=== PATIENT | male | born 1985 | race Caucasian/White ===

== ENCOUNTER → 2019-02-11 | Outpatient (CLI) | payer OTHER, SELFPAY ==
--- NOTE | 2019-02-11 15:26 | RAD_ITS ---
HISTORY:right wrist pain, Hx fracture when a child- growth plate right wrist pain, Hx fracture when a child- growth plate COMPARISON: None FINDINGS: # of images incl. paperwork: 3 XR Wrist Min 3 Views: Right BONE AND JOINTS: No acute fracture or subluxation. Corticated calcification distal to the ulnar styloid that may represent prior trauma or nonunion of secondary ossification center SOFT TISSUES: Unremarkable. No radiopaque foreign body. RAD/Wrist min 3 Views IMPRESSION: No acute pathology If symptoms persist repeat study in 7-10 days or sooner if clinically indicated at 1853 Reported and signed by: Ann Hoskins DO Electronically Signed: Ann Hoskins DO at 18:51 EDT Tel , Service support ,
--- NOTE | 2019-02-11 15:27 | RAD_ITS ---
HISTORY:right foot pain right foot pain COMPARISON: None FINDINGS: # of images incl. paperwork: 3 XR Foot Min 3 Views: Right BONE AND JOINTS: No acute fracture or subluxation. SOFT TISSUES: Unremarkable. No radiopaque foreign body. RAD/Foot min 3 Views IMPRESSION: No acute pathology If symptoms persist repeat study in 7-10 days or sooner if clinically indicated at 1852 Reported and signed by: Ann Hoskins DO Electronically Signed: Ann Hoskins DO at 18:51 EDT Tel , Service support ,
--- NOTE | 2019-02-11 15:27 | RAD_ITS ---
HISTORY:right ankle pain right ankle pain COMPARISON: None FINDINGS: # of images incl. paperwork: 3 XR Ankle Min 3 Views: Right BONE AND JOINTS: No acute fracture or subluxation. Small corticated fragment seen inferior and medial to the tip of the lateral malleolus may be secondary to prior trauma SOFT TISSUES: Unremarkable. No radiopaque foreign body. RAD/Ankle min 3 Views IMPRESSION: No acute pathology If symptoms persist repeat study in 7-10 days or sooner if clinically indicated at 1853 Reported and signed by: Ann Hoskins DO Electronically Signed: Ann Hoskins DO at 18:52 EDT Tel , Service support ,
--- NOTE | 2019-02-11 15:35 | RAD_ITS ---
HISTORY:right foot pain right foot pain COMPARISON: None FINDINGS: # of images incl. paperwork: 3 XR Hand Min 3 Views: Right BONE AND JOINTS: No acute fracture or subluxation. Corticated fragment distal to the ulnar styloid that may be secondary to prior trauma or nonunion of secondary aspiration Center SOFT TISSUES: Unremarkable. No radiopaque foreign body. RAD/Hand Min 3 Views IMPRESSION: No acute pathology If symptoms persist repeat study in 7-10 days or sooner if clinically indicated at 1855 Reported and signed by: Ann Hoskins DO Electronically Signed: Ann Hoskins DO at 18:54 EDT Tel , Service support ,
== END | disposition home or self-care (01) ==
PROVIDERS: Referring Provider Anesthesiology Pain Medicine; Visit Provider Anesthesiology Pain Medicine
DX: M79.641 Pain in right hand (principal); M79.671 Pain in right foot
CPT/HCPCS: 73110; 73130; 73610; 73630

== ENCOUNTER 2019-03-16 17:30 | Outpatient (RCR) | payer OTHER, SELFPAY ==
--- NOTE | 2019-02-25 17:19 | HP.PTEVAL_ITS ---
Patient's Visit Information KEN SIERRA is a 33 year old M referred to Physical Therapy by Eder Alexis MD with a diagnosis of ANKLE PAIN AND HAND PAIN. Date of Evaluation: 02/25/19 Physical Therapist: Eldon Pfeiffer PT, Cert MDT, OCS - Visit Plan Frequency: 2x /Week Duration: 4 Weeks Plan: PLAN TO SEE OT (TOMMY ) FOR HAND. PT INTERVENTIONS ANKLE STRENGTHENING,PROPRIOCEPTION ,FLEXABLITY G-S,MODALTIES NEED - Subjective Findings: This 33 y/o male presents to physical therapy with right foot pain and hand pain. Patient has had right ankle pain from injury 8 years ago sprain ankle x2 . Patient has current ankle pain global. Patient injuried right wrist 8th grade from snow board. Deies parathesia/tingling. Patient ankle can gives way easy . Patient pain affects job demands and ADL's Sleeping okay at night . Symptoms worse with working and standing at wotrk long hours at work.Patient pain affects QOL and function. VOCATION: [employer]. 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 GAIT: normal ike reciprocal. PALAPTION: remarkable. EDEMA: absent. AROM:DF 5 degrees,PF 65 degrees ,IN 40 degrees,EV 10 degrees. MMT: ankle stabilizies 4/5. PROPRIOCEPTION: intact. SPECIAL TEST: inversion stress -,anterior drawer - - Goals Goal 1:: Patient to be Independant with HEP Goal Time Frame: 2-4 Weeks Goal 2:: Decrease ankle pain by 50 % or> to improve function Goal Time Frame: 2-4 Weeks Goal 3:: Patient to increase strength right ankle by 5/5 to improve function Goal Time Frame: 2-4 Weeks Goal 4:: Patient to improve LFES score by 10 ponts to improve function Goal Time Frame: 2-4 Weeks - Rehabilitation Potential Physical Therapy Diagnosis: Pateint has chronic ankle pain from h/o multiple ankle sprains with pain impairs ,srength affects function with walking on even surfaces. Rehabilitation Potential: Good - Anticipated Interventions Patient/Client Instruction: Educate patient on: Condition, Plan of Care For the Purpose of:: To decrease pain, To increase ROM, To improve muscle performance and motor function, To improve ability to perform ADL's, To improve performance and independence with ADL's, To improve ability of physical actions for home/community/work/leisure, To improve health of tissue, To decrease soft tissue restriction, To reduce risk of recurrence, To improve ability to perform tasks related to life management Therapeutic Exercise to Include: Strength training, Endurance training, Balance training, Flexibilty training, Active ROM Comment: ANKLE/PROPRIOCEPTION For the Purpose of:: To decrease pain, To increase ROM, To improve muscle performance and motor function, To increase tolerance to activity/condition/position, To improve ability of physical actions for home/community/work/leisure, To improve health of tissue, To decrease soft tissue restriction, To increase flexibility/ROM, To improve balance, To improve ability to perform tasks related to life management TENS: Yes IF ES: Yes Cryotherapy (ice pack, ice massage): Yes Thermo therapy (hot pack): Yes Ultrasound (thermal/non thermal): Yes For the Purpose of:: To decrease pain, To increase ROM, To improve nutrient delivery to tissue, To increase oxygenation perfusion, To improve health of tissue, To decrease soft tissue restriction Thank you for the opportunity to evaluate your patient. For Medicare and Medicare HMO plans, please review the plan of care and approve it. It will need to be FAXED BACK to us at [phone] for Medicare purposes. For Medicare only, by signing this I certify the plan of care. Please let me know if there are questions or concerns regarding this plan of care. Physician Signature: Date:
--- NOTE | 2019-03-16 18:50 | HP.OTEVAL ---
Patient's Visit Information KEN SIERRA is a 33 year old M, referred to Occupational Therapy by Eder Alexis MD, with a diagnosis of right hand/wrist pain. Date of Evaluation: 03/16/19 Occupational Therapist: Beckie Tolbert, DEBBIE/Emmie, CHT - Subjective Subjective: This 33 year old male was seen for OT eval with dx of right wrist/hand pain- pt states when he was in 8th grade he had a growth plate fracture from snow boarding. 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 Pt will demo an increase in lateral and tripod pinch by 6# to increase pts independent with opening baggies, containers at PLOF by D/C. 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 Pt would benefit from skilled OT services 1-2x week for 4 weeks to decrease pain, increase strength to return pt to PLOF. Therapist ed. pt on Ice, limited use and work ergo to decrease pts pain. pt also ed. in POC. pt demo understanding and agree to POC. Rehabilitation Potential: Good - Anticipated Interventions Anticipated Interventions: A/AAROM/PROM, Strengthening, Modalities, Orthoses, Ergonomic Education - Visit Plan Frequency: 1-2x /Week Duration: 4 Weeks TEXT: Thank you for the opportunity to evaluate your patient. For Medicare and Medicare HMO plans, please review the plan of care and approve it. It will need to be FAXED BACK to us at [phone] for Medicare purposes. Please let me know if there are questions or concerns regarding this plan of care. Physician Signature: Date:
--- NOTE | 2019-04-15 13:52 | HP.PT.NRP ---
HP - Discharge Summary (1) - Patient Information KEN SIERRA was seen in my office for initial evaluation on 02/25/19. The following Plan of Care was established for this patient: Initial Frequency: 2x /Week Initial Duration: 4 Weeks - Anticipated Interventions Patient/Client Instruction: Educate patient on: Condition, Plan of Care For the Purpose of:: To decrease pain, To increase ROM, To improve muscle performance and motor function, To improve ability to perform ADL's, To improve performance and independence with ADL's, To improve ability of physical actions for home/community/work/leisure, To improve health of tissue, To decrease soft tissue restriction, To reduce risk of recurrence, To improve ability to perform tasks related to life management Therapeutic Exercise to Include: Strength training, Endurance training, Balance training, Flexibilty training, Active ROM For the Purpose of:: To decrease pain, To increase ROM, To improve muscle performance and motor function, To increase tolerance to activity/condition/position, To improve ability of physical actions for home/community/work/leisure, To improve health of tissue, To decrease soft tissue restriction, To increase flexibility/ROM, To improve balance, To improve ability to perform tasks related to life management TENS: Yes IF ES: Yes Cryotherapy (ice pack, ice massage): Yes Thermo therapy (hot pack): Yes Ultrasound (thermal/non thermal): Yes For the Purpose of:: To decrease pain, To increase ROM, To improve nutrient delivery to tissue, To increase oxygenation perfusion, To improve health of tissue, To decrease soft tissue restriction This patient was last seen in our office . Pertinent comments regarding their Physical therapy will appear below: Patient seen for PT for right ankle pain for ROM/flexablity/strengthening and proprioception thus is d/c to HEP. At this point I will be discontinuing this patient from physical therapy. I would be happy to see this patient again in the future if found appropriate by the physician. Thank you! Eldon Pfeiffer, PT, Cert MDT, OCS
--- NOTE | 2019-04-15 16:17 | HP.OT.NRP ---
HP - Discharge Summary - Patient Information KEN SIERRA was seen in my office for initial evaluation on 03/16/19. The following Plan of Care was established for this patient: Initial Frequency: 1-2x /Week Initial Duration: 4 Weeks - Anticipated Interventions Anticipated Interventions: A/AAROM/PROM, Strengthening, Modalities, Orthoses, Ergonomic Education This patient was last seen in our office 03/16/19. Pertinent comments regarding their Occupational therapy will appear below: pt seen for eval only- pt NO show 3 visits and was d/c At this point I will be discontinuing this patient from occupational therapy. I would be happy to see this patient again in the future if found appropriate by the physician. Thank you! Beckie Tolbert, OTR/L, CHT
== END 2019-03-16 19:00 | disposition home or self-care (01) ==
LOC: PT 17:30
PROVIDERS: Referring Provider Anesthesiology Pain Medicine; Visit Provider Anesthesiology Pain Medicine
DX: M79.643 Pain in unspecified hand (principal); M79.673 Pain in unspecified foot
CPT/HCPCS: 97014; 97035; 97110; 97162; 97166; G0283

== ENCOUNTER 2022-06-06 19:20 | Emergency (ER) | payer MEDICAID, SELFPAY ==
[2022-06-06 19:24] VITALS: BP 117/81; PULSE 118; RESP 18; TEMP 36.7; O2SAT 98; BMI 33.3
--- NOTE | 2022-06-06 21:21 | US_ITS ---
EXAM: US DUPLEX RIGHT LOWER EXTREMITY VEINS CLINICAL INDICATION: RT ANKLE SWELLING TECHNIQUE: Real-time duplex ultrasound scan of the right lower extremity veins integrating B-mode two-dimensional vascular structure, Doppler spectral analysis, color flow Doppler imaging and compression. This report was created using [employer] technology. COMPARISON: None. FINDINGS: DEEP VEINS: Unremarkable. No DVT in the visualized common femoral, femoral, proximal deep femoral or popliteal veins. The veins demonstrate normal color flow, are normally compressible, with normal phasic flow and/or augmentation response. SUPERFICIAL VEINS: Unremarkable. No thrombus in the visualized great saphenous vein. SOFT TISSUES: No acute findings. No popliteal cyst. US/Venous Duplex Imag/Limited/Uni IMPRESSION: Normal right lower extremity duplex venous ultrasound. Electronically Signed: Jo Ann Osorio MD at 22:04 EST Reading Location ID and State: [id number] / Tel , Service support ,
--- NOTE | 2022-06-06 21:23 | RAD_ITS ---
STUDY: X-RAY - RIGHT ANKLE REASON FOR EXAM: Male, 36 years old. Pain and swelling for 4 to 5 days. No known injury. TECHNIQUE: view(s) of the ankle. COMPARISON: None. FINDINGS: Normal visualized distal tibia and fibula. Normal medial and lateral malleoli. Normal tibiotalar articulation and ankle mortise. Normal visualized talus and calcaneus. The visualized subtalar, talonavicular, calcaneocuboid and tarsal articulations are normal. Mild anteromedial soft tissue swelling. Question sprain. RAD/Ankle min 3 Views IMPRESSION: Soft tissue swelling without fracture or dislocation. Electronically Signed: Roberto Interiano DO at 21:35 EST ,
--- NOTE | 2022-06-06 21:40 | EDS_ITS ---
HPI History of Present Illness Chief Complaint: Lower Extremity Injury Informant: patient Narrative Narrative: Patient presents with soreness of his right ankle and lower leg. He states has been going on for about 5 days. He has had no fevers or chills. He states he can walk around on it but it is sore and a little swollen. He has history of an injury to that ankle about 12 years ago. He states sometimes if he does too much work or activity it will swell and bother him. He states the only thing he has done recently is driving because of a sick family member. Therefore has been on the road a lot more. He is wondering if he held his ankle in a funny position. He is not having chest pain dyspnea. No progressive swelling all the way up the leg. He states he also has some sore joints mostly in his wrists just with activity and he thinks this might be from holding the steering wheel. No pain in the hips. The other leg does not bother him. No pain in elbows or shoulders. No neck pain. Has had no recent infections. No acute trauma. He has no history of DVT or PE. He states he feels a little bit nervous because he went online to look what could be causing this and it told him he had to get into the emergency department right away so he is a little bit nervous. PFSH PFSH Medical History Anxiety Chronic pain Non-smoker Home Medications ondansetron 8 mg disintegrating tablet (Zofran ODT) 8 mg PO Q8H PRN PRN Nausea ##10 02/10/15 [Rx Last Taken Unknown] permethrin 5 % topical cream (Elimite) 60 g TP X1 #1 tube 10/26/15 [Rx Last Taken Unknown] naproxen 500 mg tablet 500 mg PO BID #20 tabs 06/06/22 [Rx Last Taken Unknown] Allergy/AdvReac Type Severity Reaction Status Date / Time No Known Allergies Allergy Verified 06/06/22 19:27 Social History Smoking Status: Never smoker ROS ROS ED Constitutional Constitutional ED: Denies chills or fever(s) ENT ENT ED: Denies rhinorrhea or sore throat Cardiovascular Cardiovascular: Denies chest pain, palpitations or racing heartbeat Respiratory/Chest Respiratory/Chest: Denies cough, dyspnea or sputum Gastrointestinal Gastrointestinal: Denies nausea or vomiting Musculoskeletal Musculoskeletal: Reports arthralgias and other Details: No history of gout. ; Denies back pain or neck pain Integumentary Denies Abrasions or rash Neurologic Neurologic: Denies paresthesias or weakness Psychiatric Psychiatric: Reports anxiety Endocrine Endocrinology: Denies polydipsia or polyuria Hematologic/Lymphatic Hematologic/Lymphatic: Denies easy bleeding, easy bruising or lymphadenopathy Allergic/Immunologic Allergic/Immunologic ED: Denies urticaria EXAM Physical Exam Narrative Exam Narrative: Patient awake alert no acute distress. He is lying comfortably in bed. He is able to move head and neck easily. No neck pain. He has no sign of facial or head trauma. No icterus. Lungs are clear. Heart is actually now regular about 95 or 100. Peripheral pulses are normal x4 extremities. He can move his right wrists all around. There is no erythema or swelling. He pushes himself up on bed and he states that he can feel them a little sore. But their exam is normal. Abdomen is also completely benign. Const Vital Signs: 06/06/22 19:24 Temperature 98.0 F Temperature Source Temporal Pulse Rate 118 H Respiratory Rate 18 Blood Pressure 117/81 H Blood Pressure Mean 93 Pulse Ox 98 Oxygen Delivery Method Room Air MDM MDM MDM Narrative Medical decision making narrative: My independent interpretation of the patient's three-view x-ray of the right ankle shows no sign of fracture, abnormal calcification dislocation or other acute process. Final radiology reading was also reviewed that shows soft tissue swelling without fracture or dislocation. I reviewed the radiology reading of his ultrasound that shows no DVT. I think the patient irritated his ankle from the positioning that he was in. There is no indication of septic joint. He has had no recent infections. Ankle is not red or hot. I can move it passively without any pain. He does have some pain with weightbearing but he still able to walk. He has no fevers or chills. He has no immunosuppression. He will be given nonsteroidals. He will ice elevate and rest this. I also do not think this is likely gout as the pain is not that bad, it is not warm, he has no history of gout in the past. Radiography Diagnostic Testing: Clinical Impression(s) from Imaging Studies Venous Duplex 06/06/22 21:21 IMPRESSION: Normal right lower extremity duplex venous ultrasound. Electronically Signed: Jo Ann Osorio MD at 22:04 EST Reading Location ID and State: [id number] / Tel , Service support , Ankle X-Ray 06/06/22 21:23 IMPRESSION: Soft tissue swelling without fracture or dislocation. Electronically Signed: Roberto Interiano DO at 21:35 EST , Discharge Plan Triage Chief Complaint: Lower Extremity Injury ED Provider: Stalin Momin Dx/Rx/DC Orders Clinical Impression: Acute right ankle pain Instructions: ED Arthralgia Prescriptions: New naproxen 500 mg tablet 500 mg PO BID Qty: 20 0RF No Action ondansetron [Zofran ODT] 8 MG tablet,disintegrating 8 mg PO Q8H PRN PRN (Reason: Nausea) Qty: 10 0RF permethrin [Elimite] 60 GM cream 60 g TP X1 Qty: 1 1RF Primary Care Provider: Care Physician,No Primary Referrals: Prachi Tavares MD [Med Staff - Consulting Systems Engineer] - 1 Week if not improving Care Physician,No Primary [Primary Care Provider] - Disposition Disposition: Home, Self Care
[2022-06-06 23:24] VITALS: O2SAT 97
== END 2022-06-06 23:26 | disposition home or self-care (01) ==
PROVIDERS: Emergency Provider Emergency Medicine; Visit Provider Emergency Medicine
DX: M25.571 Pain in right ankle and joints of right foot (principal); M79.89 Other specified soft tissue disorders
CPT/HCPCS: 73610; 93971; 99282

== ENCOUNTER 2022-06-25 20:21 | Emergency (ER) | payer MEDICAID, SELFPAY ==
[2022-06-25 20:21] VITALS: BP 216/197; PULSE 87; RESP 16; TEMP 36; O2SAT 96; BMI 34.7
[2022-06-25] MEDS: Morphine 4 MG/ML Syringe IV (22:20)
[2022-06-25 22:26] LABS: Absolute Lymphocyte Count 1.47 X10^3/uL (0.83-4.51); Absolute Neutrophil Count 9.1 X10^3/uL (2.0-7.7); Basophil# 0.09 X10^3/uL; Basophil% 0.7 % (0-1); Eosinophil# 0.53 X10^3/uL; Eosinophils% 4.2 % (0-5); Hematocrit 40.6 % (40-54); Lymphocyte # 1.47 X10^3/ul (0.83-4.51); Lymphocyte % 11.7 % (19-41); Mean Corpuscular Hgb 26.6 pg (27.0-32.0); Mean Corpuscular Volume 83.2 fL (80-94); Mean Platelet Vol. 10.2 fl (6.2-12.0); Monocyte# 1.34 X10^3/uL; Monocyte% 10.6 % (0-10); NRBC Flagged by Analyzer 0 % (0-5); Neutrophil % 72.2 % (47-70); Platelet Count 486 K/mm3 (150-450); RBC Distribution Width CV 12.3 % (11.6-14.6); RBC Distribution Width SD 37.2 fl (35.1-43.9); Red Blood Count 4.88 M/mm3 (4.6-6.2); White Blood Count 12.6 K/mm3 (4.4-11.0)
--- NOTE | 2022-06-25 22:50 | EDS_ITS ---
HPI History of Present Illness Chief Complaint: Other, Pain/Inj Informant: patient and spouse/S.O. Onset/Context/Timing Onset: Weeks (3) Context: Gradual Onset Timing: Continuous Quality: Dull, cramping, sharp Location: Generalized Worsened by: Movement Relieved by: Nothing Narrative Narrative: Patient presents with pain all over his body for the past 3 weeks. Patient states it is gradually getting worse. Patient states it started in his right ankle after an injury. Patient states that he is now having some redness to his lower legs, hands, thighs, and upper extremities. Patient states this is patchy. Patient denies any fevers but admits to some subjective chills and sweats. Patient states his pain feels like it is dull, cramping but sharp at times. Patient states it is all over his body. Patient states it is worse with certain movements. Patient states nothing seems to help with it. Patient states he was seen here a couple weeks ago and had labs drawn at that time. Patient states he was discharged but never followed up with his primary care ph ysician. PFSH PFSH Medical History Anxiety Chronic pain Non-smoker Home Medications ondansetron 8 mg disintegrating tablet (Zofran ODT) 8 mg PO Q8H PRN PRN Nausea ##10 02/10/15 [Rx Last Taken Unknown] permethrin 5 % topical cream (Elimite) 60 g TP X1 #1 tube 10/26/15 [Rx Last Take n Unknown] naproxen 500 mg tablet 500 mg PO BID #20 tabs 06/06/22 [Rx Last Taken Unknown] hydrocodone-acetaminophen 5-325mg 5mg-325mg 1 tab PO Q6H PRN PRN Pain 3 days #10 TABLETS 06/26/22 [Rx Last Taken Unknown] prednisone 20 mg tablet 60 mg PO DAILY #15 TABLETS 06/26/22 [Rx Last Taken Unknown] Allergy/AdvReac Type Severity Reaction Status Date / Time No Known Allergies Allergy Verified 06/06/22 19:27 Surgical History no surgical history no surgical history Social History Smoking Status: Never smoker ROS ROS ED Constitutional Constitutional ED: Reports chills, subjective and sweats; Denies fever(s) Eyes Eyes: Denies blurry vision or change in vision ENT ENT ED: Denies rhinorrhea or sore throat Cardiovascular Cardiovascular: Denies chest pain or palpitations Respiratory/Chest Respiratory/Chest: Denies cough or dyspnea Gastrointestinal Gastrointestinal: Reports nausea; Denies vomiting Genitourinary Genitourinary ED: Denies dysuria or hematuria Musculoskeletal Musculoskeletal: Reports back pain and myalgias; Denies neck pain Integumentary Reports rash; Denies Abrasions Neurologic Neurologic: Denies headache(s) or weakness Allergic/Immunologic Allergic/Immunologic ED: Denies mouth swelling or tongue swelling EXAM Physical Exam Const Vital Signs: 06/25/22 20:21 Temperature 96.8 F L Temperature Source Temporal Pulse Rate 87 Respiratory Rate 16 Blood Pressure 216/197 H Blood Pressure Mean 203 Pulse Ox 96 Oxygen Delivery Method Room Air Positive well nourished, well developed and obese General Appearance ED: well developed and NAD Nutritional Appearance: obese HEENT Reports moist mucous membranes Neck supple and no JVD Resp normal respiratory effort and clear to auscultation bilaterally Cardio regular rate, regular rhythm and no murmurs GI normal to inspection, nondistended, normoactive bowel sounds and non-tender Palpation: soft Extremity Extremity Narrative: There is edema over the ankles bilaterally. There is no ecchymosis. There is no obvious deformity noted. There is good range of motion of the extremities. Radial and pedal pulses are equal bilaterally. Sensation was intact to light touch bilaterally upper and lower extremities. Strength is 5/5 bilaterally upper and lower extremities. General Extremety ED: Yes edema; Negative for tenderness General Extremity: edema Neuro oriented x3, CN's II-XII intact bilaterally and no sensory deficits noted Sensorium / Orientation: alert Motor Exam: strength 5/5 throughout Psych mental status grossly normal Skin Skin Narrative: There is patchy erythema over the anterior aspect of the lower legs bilaterally, bilateral hands, and bilateral thighs. There is no fluctuance. There is no warmth. There is no discharge or drainage. MDM MDM MDM Narrative Medical decision making narrative: Patient was given morphine. Patient's blood pressure was elevated so IV fluids was withheld. Differential diagnosis includes autoimmune disease, rheumatologic disease, hypothyroidism, but if they are infection, and inflammatory disease. CBC will be obtained to assess for leukocytosis, thrombocytosis, and anemia. Comprehensive metabolic profile will be obtained to assess for electrolyte abnormality, renal function, and hepatic function. Urinalysis will be obtained to assess for hematuria and urinary tract infection. Sed rate and CRP will be obtained to assess for inflammatory markers. Lactate will be obtained to assess for source sepsis. TSH will be obtained to assess for hypothyroidism. COVID-19 rapid antigen area therapy obtained to assess for COVID-19 infection. Influenza A and influenza B antigens will be obtained to assess for influenza infection. Lab Data Attestation: I reviewed the patient's lab results. Lab results narrative: CBC was reviewed. There is a mild leukocytosis of 12.6. Platelets were 486. Sed rate was reviewed and was elevated at 56. Comprehensive metabolic profile was reviewed and showed a slightly elevated creatinine of 1.38. The remainder was essentially within normal limits. C-reactive protein was reviewed and was elevated at 81.5. Lactate was reviewed and was normal. TSH was reviewed and was normal. Urinalysis was reviewed and there is no evidence of urinary tract infection or hematuria. COVID-19 antigen was reviewed and was negative. Influenza A and influenza B antigens were reviewed and were negative. Labs: Laboratory Results - last 24 hr 06/25/22 06/25/22 06/25/22 22:18 22:18 22:18 WBC 12.6 H RBC 4.88 Hgb 13.0 Hct 40.6 MCV 83.2 MCH 26.6 L MCHC 32.0 RDW Std Deviation 37.2 RDW Coeff of Donato 12.3 Plt Count 486 H MPV 10.2 Immature Gran % (Auto) 0.600 Neut % (Auto) 72.2 H Lymph % (Auto) 11.7 L [place] % (Auto) 10.6 H Eos % (Auto) 4.2 Baso % (Auto) 0.7 Absolute Neuts (auto) 9.1 H Absolute Lymphs (auto) 1.47 Nucleated RBC % 0 ESR 56 H Sodium 137 Potassium 4.0 Chloride 104 Carbon Dioxide 26.0 Anion Gap 7 BUN 14 Creatinine 1.38 H Estim Creat Clear Calc 87.69 Est GFR (MDRD) Af Amer 75 Est GFR (MDRD) Non-Af 62 BUN/Creatinine Ratio 10.1 Glucose 113 H Lactic Acid 0.8 Calcium 8.9 Total Bilirubin 0.30 AST 23 ALT 32 Alkaline Phosphatase 125 H C-React Prot Ext Range 81.50 H Total Protein 7.5 Albumin 3.3 Globulin 4.2 Albumin/Globulin Ratio 0.8 L TSH 1.21 Urine Color Urine Clarity Urine pH Ur Specific [place] Urine Protein Urine Glucose (UA) Urine Ketones Urine Occult Blood Urine Nitrite Urine Bilirubin Urine Urobilinogen Ur Leukocyte Esterase Urine RBC Urine WBC Ur Squamous Epith Cells Urine Bacteria Urine Mucus 06/25/22 22:45 WBC RBC Hgb Hct MCV MCH MCHC RDW Std Deviation RDW Coeff of Donato Plt Count MPV Immature Gran % (Auto) Neut % (Auto) Lymph % (Auto) [place] % (Auto) Eos % (Auto) Baso % (Auto) Absolute Neuts (auto) Absolute Lymphs (auto) Nucleated RBC % ESR Sodium Potassium Chloride Carbon Dioxide Anion Gap BUN Creatinine Estim Creat Clear Calc Est GFR (MDRD) Af Amer Est GFR (MDRD) Non-Af BUN/Creatinine Ratio Glucose Lactic Acid Calcium Total Bilirubin AST ALT Alkaline Phosphatase C-React Prot Ext Range Total Protein Albumin Globulin Albumin/Globulin Ratio TSH Urine Color Yellow Urine Clarity Clear Urine pH 5.0 Ur Specific [place] 1.025 Urine Protein 15 H Urine Glucose (UA) Normal Urine Ketones 5 H Urine Occult Blood Negative Urine Nitrite Negative Urine Bilirubin Negative Urine Urobilinogen Normal Ur Leukocyte Esterase 25 H Urine RBC 0 SEEN Urine WBC 0-5 SEEN Ur Squamous Epith Cells 0 SEEN Urine Bacteria 1+ Urine Mucus 0 SEEN Treatment and Re-Evaluation Narrative: Patient is feeling somewhat better on reevaluation. Patient was given a dose of [place] and a dose of prednisone here. Patient was advised of his findings. Patient was advised that this is most likely inflammatory reaction. Patient was stressed the importance for follow-up evaluation by a primary care physician. Patient was also given a referral for rheumatology. Patient was given prescriptions for a short course of prednisone and [place]. Patient understands and is agreeable with the plan. All questions were answered. Discharge Plan Triage Chief Complaint: Other, Pain/Inj ED Provider: Pranav Bravo Dx/Rx/DC Orders Clinical Impression: Inflammatory arthritis, Dermatitis Instructions: ED Rheumatoid Arthritis Prescriptions: New hydrocodone-acetaminophen [hydrocodone-acetaminophen] 5-325 mg tablet 1 tab PO Q6H PRN PRN (Reason: Pain) 3 Days Qty: 10 0RF prednisone 20 mg tablet 60 mg PO DAILY Qty: 15 0RF No Action ondansetron [Zofran ODT] 8 MG tablet,disintegrating 8 mg PO Q8H PRN PRN (Reason: Nausea) Qty: 10 0RF permethrin [Elimite] 60 GM cream 60 g TP X1 Qty: 1 1RF naproxen 500 mg tablet 500 mg PO BID Qty: 20 0RF Primary Care Provider: Care Physician,No Primary Referrals: Pranav Jenikns MD [[facility]] - 3-5 Days Melissa Cabral MD [[facility]] - 5-7 Days Disposition Disposition: Home, Self Care
[2022-06-25 22:54] LABS: Erythrocyte Sedimentation Rate 56 mm/hr (0-20)
[2022-06-25 22:55] LABS: Mucous, Urine 0 SEEN /hpf (<or=2+); Red Blood Cells-Urine 0 SEEN /hpf (0-5); Squamous Epithelial Cells - UA 0 SEEN /hpf (0-5)
[2022-06-25 22:58] LABS: Color, Urine Yellow (Yellow); Glucose, Dipstick Normal (Normal); Ketone-Dipstick 5 mg/dl (Negative); Leukocyte Esterase-Dipstick 25 /ul (Negative); Nitrite-Dipstick Negative (Negative); Occult Blood-Urine Negative /ul (Negative); Protein-Dipstick 15 mg/dl (Negative); Specific Gravity, Urine 1.025 (1.002-1.030); Urine Bilirubin Dipstick Negative (Negative); Urine Clarity Clear (Clear); Urine Urobilinogen Normal (Normal)
[2022-06-25 23:01] LABS: ALB/GLOB Ratio 0.8 RATIO (0.9-2.4); AST(SGOT) 23 U/L (15-37); Alanine Aminotransfer ALT/SGPT 32 U/L (16-61); Albumin, Serum 3.3 g/dL (3.2-5.0); Alkaline Phosphatase 125 U/L (45-117); Anion Gap 7 (5-15); BUN 14 mg/dL (7-18); BUN/Creat Ratio 10.1 RATIO (10-20); Calcium,Total 8.9 mg/dL (8.5-10.1); Chloride 104 mmol/L (98-107); Creatinine, Serum 1.38 mg/dL (0.70-1.30); EST Glomerular Filtration Rate 62 mL/min (>60); Est Glom Filt Rate - Afr Amer 75 mL/min (>60); Estimated Creatinine Clearance 87.69 ml/min; Globulin 4.2 g/dL (2.2-4.2); Glucose 113 mg/dL (74-106); Protein, Total 7.5 g/dL (6.4-8.2); Sodium Level 137 mmol/L (136-145); Thyroid Stim Hormone (TSH) 1.21 uIU/mL (0.358-3.74)
[2022-06-25 23:12] LABS: Bacteria 1+ /hpf (None Seen); White Blood Cells 0-5 SEEN /hpf (0-5)
[2022-06-25 23:16] LABS: Lactic Acid 0.8 mmol/L (0.4-1.9)
[2022-06-26] MEDS: HYDROcodone Bitartrate/Apap 5/325 Tablet PO (00:10)
[2022-06-26] MEDS: predniSONE 20 MG Tablet 60 MG PO (00:11)
== END 2022-06-26 00:15 | disposition home or self-care (01) ==
PROVIDERS: Emergency Provider Emergency Medicine; Visit Provider Emergency Medicine
DX: M06.4 Inflammatory polyarthropathy (principal); L30.9 Dermatitis, unspecified
CPT/HCPCS: 80053; 81001; 83605; 84443; 85025; 85652; 86140; 87428; 96374; 99282; A4216

== ENCOUNTER → 2022-06-29 | Outpatient (CLI) | payer MEDICAID, SELFPAY ==
[2022-06-29 10:48] LABS: Lyme Ab Screen Interpretation REF LAB
[2022-06-29 12:14] LABS: Erythrocyte Sedimentation Rate 36 mm/hr (0-20)
[2022-06-29 12:30] LABS: CRP 9.02 mg/L (0.0-3.0); Rheumatoid Factor < 10.0 IU/mL (<15); Uric Acid 7.8 mg/dL (3.5-7.2)
[2022-06-29 13:06] LABS: HIV - WCH Non-Reactive (Nonreactive); Hepatitis C Antibody Non-Reactive (Nonreactive); Syphilis Antibodies Non-reactive
[2022-06-29 16:08] LABS: Chlamydia Trachomatis by PCR Negative (Negative); Neisserai gonorrhoeae by PCR Negative (Negative); Probe Check PASS; Sample Adequacy Control PASS; Specimen Processing Control PASS
[2022-06-30 09:46] LABS: ASO Titer 162.2 IU/mL (0.0-200.0); Lyme Scn Total Ab w/Rflx Negative (Negative)
[2022-07-02 13:54] LABS: ANTINUCLEAR ANTIBODIES DIRECT Negative (Negative)
== END | disposition home or self-care (01) ==
PROVIDERS: PCP Family Medicine; Referring Provider Family Medicine; Visit Provider Family Medicine
DX: M25.50 Pain in unspecified joint (principal); R70.0 Elevated erythrocyte sedimentation rate; K92.1 Melena; K27.9 Peptic ulcer, site unspecified, unspecified as acute or chronic, without hemorrhage or perforation
CPT/HCPCS: 36415; 84550; 85652; 86038; 86060; 86140; 86225; 86235; 86431; 86618; 86703; 86780; 86803; 87040; 87491; 87591

== ENCOUNTER → 2022-09-25 | Outpatient (CLI) | payer MEDICAID, SELFPAY ==
--- NOTE | 2022-09-25 09:06 | RAD_ITS ---
STUDY: X-RAY - RIGHT WRIST REASON FOR EXAM: Male, 37 years old. chroinc R wrist pain TECHNIQUE: 3 view(s) of the wrist were obtained. COMPARISON: None. FINDINGS: Normal visualized distal radius and ulna. Normal radiocarpal articulation. Normal distal radioulnar articulation. Normal carpal bones. Normal carpal articulations. Normal carpometacarpal articulation of the thumb. Normal second through fifth carpometacarpal articulations. Normal visualized metacarpal bones. Small accessory ossicle distal to the ulnar styloid process of uncertain clinical significance.. RAD/Wrist min 3 Views IMPRESSION: Small accessory ossicle of uncertain clinical significance. No acute fracture or other significant bony pathology. Electronically Signed: Tae Gonzalez MD at 17:25 EDT ,
== END | disposition home or self-care (01) ==
LOC: MTRAD 09:06
PROVIDERS: PCP Family Medicine; Referring Provider Family Medicine; Visit Provider Family Medicine
DX: M25.531 Pain in right wrist (principal)
CPT/HCPCS: 73110

== ENCOUNTER → 2023-05-07 | Outpatient (CLI) | payer MEDICAID, SELFPAY ==
--- NOTE | 2023-05-07 15:40 | RAD_ITS ---
STUDY: X-RAY - MANDIBLE (COMPLETE) REASON FOR EXAM: Male, 37 years old. right upper and lower pre molar tooth pain TECHNIQUE: 5 view(s) of the mandible were obtained. COMPARISON: None. FINDINGS: Normal mandible. Normal visualized right temporomandibular joint. Normal visualized left temporomandibular joint. The remaining visualized osseous structures are normal. The soft tissue structures are unremarkable. RAD/Mandible Min 4 Views IMPRESSION: Normal x-ray examination of the mandible. Electronically Signed: Maurice Sinclair MD at 16:10 EST ,
[2023-05-07 18:17] LABS: Amphetamine Urine VISTA NEGATIVE (<1000 ng/mL); Barbiturate Urine VISTA NEGATIVE (< 200 ng/mL); Benzodiazepine Urine VISTA NEGATIVE (< 200 ng/mL); Cocaine Urine VISTA NEGATIVE (< 300 ng/mL); Ecstacy Urine VISTA NEGATIVE (< 500 ng/mL); Methadone Urine VISTA NEGATIVE (< 300 ng/mL); PCP Urine VISTA NEGATIVE (< 25 ng/mL); THC Urine VISTA POSITIVE (< 50 ng/mL); Vista UDS pH Range 5
[2023-05-07 18:24] LABS: CRP < 2.90 mg/L (0.0-3.0)
== END | disposition home or self-care (01) ==
LOC: MTLAB 15:38
PROVIDERS: PCP Family Medicine; Referring Provider Family Medicine; Visit Provider Family Medicine
DX: K08.89 Other specified disorders of teeth and supporting structures (principal); F98.8 Other specified behavioral and emotional disorders with onset usually occurring in childhood and adolescence
CPT/HCPCS: 36415; 70110; 80307; 86140

== ENCOUNTER 2023-08-08 11:09 | Emergency (ER) | payer MEDICAID, SELFPAY ==
[2023-08-08 11:10] VITALS: BP 123/84; PULSE 85; RESP 14; TEMP 36.5; O2SAT 97; BMI 33.5
--- NOTE | 2023-08-08 13:19 | ED.VIS.CHEST ---
HPI History of Present Illness Chief Complaint: Chest Pain Informant: patient Onset/Context/Timing Onset: Month(s) (1) Activity at onset: gradual Timing: Continuous Quality: Positive for Dull and Sharp Location: Left Chest Worsened By: Nothing Relieved By: Nothing Associated Symptoms: Positive for Lightheadedness; Negative for Nausea, Vomiting, Diaphoresis, Dyspnea, Cough, Fever, Acid Reflux or Palpitations Narrative Narrative: Patient presents with chest pain that has been constant for the past months. Patient states it is over the left side of his chest and radiates down into his left arm. Patient states he has some weakness and fatigue in his left arm. Patient describes his pain as dull but sharp at times. Patient states nothing makes it better and nothing makes it worse. Patient denies any nausea or vomiting. Patient denies any diaphoresis. Patient states he does get lightheaded at times. Patient states he has been having some blood in his bowel movements intermittently over the past month as well. Patient denies any nausea or vomiting. Patient denies any hematemesis or coffee-ground emesis. CVD Risk Factors: Negative for Hypertension, Diabetes, Hypercholesterolemia, Family History 1' </=55 or Smoking PE Risk Factors: Negative for Recent Travel/Surgery, Recent Immobilization, Prior DVT or PE, Cancer or OCP + Smoking + >/=35 PFSH PFSH Medical History Anxiety Chronic pain Non-smoker Home Medications NK 08/08/23 [History Last Taken Unknown] Allergy/AdvReac Type Severity Reaction Status Date / Time No Known Allergies Allergy Verified 08/08/23 11:10 Surgical History no surgical history no surgical history Social History (Updated 08/08/23 @ 15:[address] Pranav Bravo, DO) Smoking Status: Unknown if ever smoked substance use type: marijuana ROS ROS ED Constitutional Constitutional ED: Denies chills or fever(s) Eyes Eyes: Denies blurry vision or change in vision ENT ENT ED: Denies rhinorrhea or sore throat Cardiovascular Cardiovascular: Reports as per HPI and chest pain; Denies palpitations Respiratory/Chest Respiratory/Chest: Denies cough or dyspnea Gastrointestinal Gastrointestinal: Denies abdominal pain, nausea or vomiting Genitourinary Genitourinary ED: Denies dysuria or hematuria Musculoskeletal Musculoskeletal: Denies back pain or neck pain Integumentary Denies abscess or rash Neurologic Neurologic: Denies headache(s) or weakness Allergic/Immunologic Allergic/Immunologic ED: Denies mouth swelling or urticaria EXAM Physical Exam Const Vital Signs: 08/08/23 11:10 08/08/23 13:24 08/08/23 13:26 Temperature 97.7 F L Temperature Source Temporal Pulse Rate 85 67 Respiratory Rate 14 18 Respiratory Effort Normal Non-Labored Blood Pressure 123/84 H 133/87 H Blood Pressure Mean 97 102 Pulse Ox 97 95 Oxygen Delivery Method Room Air Room Air 08/08/23 13:53 08/08/23 14:40 Temperature Temperature Source Pulse Rate 67 72 Respiratory Rate 18 18 Respiratory Effort Blood Pressure 126/93 H 125/87 H Blood Pressure Mean 104 99 Pulse Ox 95 95 Oxygen Delivery Method Room Air Room Air Positive well nourished and well developed General Appearance ED: well developed and NAD HEENT Reports moist mucous membranes Neck supple and no JVD Chest Wall inspection of chest normal Chest: tenderness rib and costochondral junction Resp normal respiratory effort and clear to auscultation bilaterally Cardio regular rate and regular rhythm GI soft to palpation, non-tender and non-distended Extremity normal to inspection Neuro oriented x3, CN's II-XII intact bilaterally and no sensory deficits noted Sensorium / Orientation: awake and alert Motor Exam: strength 5/5 throughout Psych mental status grossly normal Heart Score History: Slightly/Non-Suspicious ECG: Normal Age: </= 45 years Risk Factors: No Risk Factors Troponin: </= Normal Limit Score: 0 MDM MDM MDM Narrative Medical decision making narrative: Differential diagnosis includes cardiac dysrhythmia, cardiac ischemia, anemia, electrolyte abnormality, pneumonia, pneumothorax, musculoskeletal pain, and anxiety. EKG will be obtained to assess for cardiac dysrhythmia and cardiac ischemia. Chest x-ray will be obtained to assess for pneumonia and pneumothorax. CBC will be obtained to assess for leukocytosis and anemia. Basic metabolic profile will be obtained to assess for electrolyte abnormality and renal function. High-sensitivity troponin will be obtained to assess for cardiac ischemia. Lab Data Attestation: I reviewed the patient's lab results. Lab results narrative: CBC was reviewed and was within normal limits. Basic metabolic profile was reviewed and was within normal limits. High-sensitivity troponin was reviewed and was less than 3. Labs: Laboratory Results - last 24 hr 08/08/23 13:15 WBC 8.1 RBC 5.59 Hgb 15.4 Hct 46.2 MCV 82.6 MCH 27.5 MCHC 33.3 RDW Std Deviation 38.1 RDW Coeff of Donato 12.8 Plt Count 319 MPV 11.8 Immature Gran % (Auto) 0.200 Neut % (Auto) 66.9 Lymph % (Auto) 19.0 [place] % (Auto) 10.1 H Eos % (Auto) 3.3 Baso % (Auto) 0.5 Absolute Neuts (auto) 5.4 Absolute Lymphs (auto) 1.54 Nucleated RBC % 0 Sodium 138 Potassium 3.9 Chloride 105 Carbon Dioxide 28.0 Anion Gap 5 BUN 10 Creatinine 1.30 Estim Creat Clear Calc 107.47 Est GFR (MDRD) Af Amer 80 Est GFR (MDRD) Non-Af 66 BUN/Creatinine Ratio 7.7 L Glucose 98 Calcium 9.4 Troponin I High Sens < 3 L Radiography Diagnostic Testing: Clinical Impression(s) from Imaging Studies Chest X-Ray 08/08/23 13:48 IMPRESSION: Low volume inspiration. No acute finding. Electronically Signed: Tapan Gonzalez MD at 14:25 EDT , Portable 1 view chest x-ray was obtained. On my independent interpretation, lung kraus are clear. There is poor inspiratory effort. There is normal cardiac silhouette. Bony thorax is normal. There is no acute process noted. Radiologist also interpreted the x-ray and agrees. EKG Initial EKG: Attestation: I personally reviewed and interpreted this EKG as follows: Interpretation: Sinus Rhythm (75) and No Acute Injury Pattern Comments: EKG was obtained. On my independent interpretation, it showed a normal sinus rhythm with a rate of 75. CT interval, QRS interval, and QTc intervals were all normal. [place] was normal. There are no acute ST or T wave changes. Prior EKG tracings: available for review Prior: Unchanged (02/10/2015) Treatment and Re-Evaluation :: Patient was given aspirin here. Patient was advised of his findings. Patient is feeling better on reevaluation. Patient has a HEART score of 0. Patient was advised that this is low risk for acute cardiac event. Patient was instructed to follow-up with his primary care physician in 5 to 7 days for further evaluation. Patient was advised that his rectal bleeding may be coming from hemorrhoids. It does not appear to be severe bleeding as his blood counts are completely normal. Patient was reassured. Patient was instructed to return if worse in any way. Patient understood and was agreeable with the plan. All questions were answered. Discharge Plan Triage Chief Complaint: Chest Pain ED Provider: Pranav Bravo Dx/Rx/DC Orders Clinical Impression: Chest pain of uncertain etiology, Elevated blood pressure reading Instructions: ED Chest Pain, Uncertain Cause Prescriptions: No Action NK Primary Care Provider: Pranav Jenkins Referrals: Pranav Jenkins MD [Primary Care Provider] - Disposition Disposition: Home, Self Care
[2023-08-08 13:24] VITALS: BP 133/87; PULSE 67; RESP 18; O2SAT 95
--- NOTE | 2023-08-08 13:27 | ED.RN ---
pt states previously felt like heart was bleeding , denies that feeling now.
--- NOTE | 2023-08-08 13:48 | RAD_ITS ---
STUDY: X-RAY CHEST REASON FOR EXAM: Male, 38 years old. Chest pain. TECHNIQUE: Single frontal view of the chest. COMPARISON: 02/10/2015 FINDINGS: Low volume inspiration. There is no demonstrated pleural abnormality. Normal size heart. Normal mediastinum and cathy. Normal visualized pulmonary arteries. Normal visualized aortic arch and descending thoracic aorta. Normal visualized thoracic spine. Normal visualized ribs, clavicles, and shoulders. No abnormality of the visualized soft tissue structures of the upper abdomen. RAD/Chest 1 View (Portable) IMPRESSION: Low volume inspiration. No acute finding. Electronically Signed: Tapan Gonzalez MD at 14:25 EDT ,
[2023-08-08 13:53] VITALS: BP 126/93; PULSE 67; RESP 18; O2SAT 95
[2023-08-08 13:58] LABS: Absolute Lymphocyte Count 1.54 X10^3/uL (0.83-4.51); Absolute Neutrophil Count 5.4 X10^3/uL (2.0-7.7); Basophil# 0.04 X10^3/uL; Basophil% 0.5 % (0-1); Eosinophil# 0.27 X10^3/uL; Eosinophils% 3.3 % (0-5); Hematocrit 46.2 % (40-54); Hemoglobin 15.4 g/dL (13.0-16.5); Lymphocyte # 1.54 X10^3/ul (0.83-4.51); Mean Corp Hgb Conc 33.3 g/dL (32-36); Mean Corpuscular Hgb 27.5 pg (27.0-32.0); Mean Corpuscular Volume 82.6 fL (80-94); Mean Platelet Vol. 11.8 fl (6.2-12.0); Monocyte# 0.82 X10^3/uL; Monocyte% 10.1 % (0-10); NRBC Flagged by Analyzer 0 % (0-5); Neutrophil # 5.43 X10^3/uL (2.7-7.7); Neutrophil % 66.9 % (47-70); Platelet Count 319 K/mm3 (150-450); RBC Distribution Width CV 12.8 % (11.6-14.6); RBC Distribution Width SD 38.1 fl (35.1-43.9); Red Blood Count 5.59 M/mm3 (4.6-6.2); White Blood Count 8.1 K/mm3 (4.4-11.0)
[2023-08-08 14:19] LABS: Anion Gap 5 (5-15); BUN 10 mg/dL (7-18); BUN/Creat Ratio 7.7 RATIO (10-20); Calcium,Total 9.4 mg/dL (8.5-10.1); Chloride 105 mmol/L (98-107); EST Glomerular Filtration Rate 66 mL/min (>60); Est Glom Filt Rate - Afr Amer 80 mL/min (>60); Estimated Creatinine Clearance 107.47 ml/min; Glucose 98 mg/dL (74-106); Potassium 3.9 mmol/L (3.5-5.1); Sodium Level 138 mmol/L (136-145); Troponin-I HS (w/2H Reflex) < 3 pg/mL (3.0-78.0)
[2023-08-08] MEDS: Aspirin 81 MG TAB.CHEW 324 MG PO (14:39)
[2023-08-08 14:40] VITALS: BP 125/87; PULSE 72; RESP 18; O2SAT 95
[2023-08-08 15:53] LABS: Reflex Troponin-HS? (from REC) Y
[2023-08-08 16:24] VITALS: BP 119/79; PULSE 67; RESP 18; TEMP 36.3; O2SAT 94
--- OUTSIDE RECORDS SUMMARY | 2023-08-08 21:06 | XMS RPT_ITS | CCD ---
Author Name Unknown Address [address] [place] [address] Organization [facility] Care Team Providers Care Weight Loss Consultant Name Role Phone Faisal Jenkins MD Primary Care Provider FAISAL JENKINS Primary Care Unavailable FAISAL JENKINS Primary Care Unavailable Allergies Allergy Classification Reported Allergen(s) Allergy Type Date of Onset Reaction(s) Facility (2 sources) Dog; Translations: [DOGS] Allergy to substance 3 Other: See Comments [facility] Medications Current Medications Medication Drug Class(es) Dates Sig (Normalized) Sig (Original) amoxicillin 875 mg / clavulanate 125 mg oral tablet (1 source) Penicillin-class Antibacterial Start: 10-01-2022 End: 10-08-2022 take 1 tablet by mouth twice daily amoxicillin-clav ulanic acid (AUGMENTIN) 875-125 mg per tablet Take 1 tablet by mouth twice daily for 7 days. 14 tablet 0 10/01/2022 10/08/2022 Active Problems Problem Classification Problem Date Documented Da te Episodic/Chronic Gastrointestinal hemorrhage (2 sources) Melena; Translations: [Blood in stool] Onset: 03-12-2023 Episodic Other upper respiratory infections (1 source) Chronic sinusitis; Translations: [Chronic sinusitis, unspecified] Chronic Results Test Name Value Interpretation Reference Range Facil ity Vital Signs Date Time Vital Sign Value Performing Clinician Juan Antonio guadarrama 10-01-2022 08:03-0400 Body temperature 97.39 [degF] Tae Savage APRN.ROBOTICS TECHNOLOGIST Work Phone: [facility] 10-01-2022 08:03-0400 Body weight 120.29 kg Tae Savage APRN.ROBOTICS TECHNOLOGIST Work Phone: [facility] 10-01-2022 08:03-0400 Diastolic blood pressure 90 mm[Hg] Tae Savage MOTORCYCLE DELIVERY DRIVER.ROBOTICS TECHNOLOGIST Work Phone: [facility] 10-01-2022 08:03-0400 Heart rate 91 /min Tae Savage MOTORCYCLE DELIVERY DRIVER.ROBOTICS TECHNOLOGIST Work Phone: [facility] 10-01-2022 08:03-0400 Respiratory rate 21 /min Tae Savage MOTORCYCLE DELIVERY DRIVER.ROBOTICS TECHNOLOGIST Work Phone: [facility] 10-01-2022 08:03-0400 SaO2% (BldA) [Mass fraction] 98 % Tae Savage MOTORCYCLE DELIVERY DRIVER.ROBOTICS TECHNOLOGIST Work Phone: [facility] 10-01-2022 08:03-0400 Systolic blood pressure 110 mm[Hg] Tae Savage MOTORCYCLE DELIVERY DRIVER.ROBOTICS TECHNOLOGIST Work Phone: [facility] Encounters Encounter Date Encounter Type Care Provider Facility Start: 03-12-2023 End: 03-13-2023 ambulatory [facility] Facility:[facility] Start: 10-01-2022 End: 10-01-2022 ambulatory [facility] Facility:[facility] Start: 10-01-2022 End: 10-01-2022 Office outpatient visit 25 minutes Tae Savage APRN.ROBOTICS TECHNOLOGIST Work Phone: [facility] Plan of Treatment Date Care Activity Detail Author Start: 01-25-2023 Influenza vaccination INFLUENZA (Sea son Ended) [facility] Start: 2022 LIPID SCREEN LIPID SCREEN [facility] Start: 05-27-2022 DEPRESSION ASSESSMENT DEPRESSION ASS ESSMENT [facility] Start: 2006 Urine microalbumin profile DTAP,TDAP ,TD (1 - Tdap) [facility] Start: 2005 HEPATITIS C SCREENING HEPATITIS C YANELY GASTON [facility] Start: 2005 HIV SCREENING HIV SCREENING [facility] Start: 01-05-1988 COVID-19 VACCINE (#1) COVID-19 VACCI NE (#1) [facility] Start: 1987 HEPATITIS B (1 of 3 - 3-dose series) HEPATITIS B (1 of 3 - 3-dose series) [facility] Payers Date Payer Category Payer Medicaid UHC MEDICAID [employer] [place] [id number] 2022-Present [phone] [address] [place] [address] Medicaid [id number] 2022 Medicaid [id number] Social History Date Type Detail Facility Start: 02-11-2013 [facility] Start: 02-11-2013 Tobacco use and exposure Smoke less tobacco non-user [facility] Start: 10-01-2022 Alcohol intake Current drinke r of alcohol (finding) [facility] Start: 1987 Sex Assigned At Not on file [facility] Progress note 10-01-2022 Note Date & Type Note Facility 10-01-2022 Note HNO ID: [id number] Author: Tae Savage APRN.ROBOTICS TECHNOLOGIST Service: ? Author Type: Nurse Practitioner Type: Progress Notes Filed: 10/01/2022 8:18 AM Note Text: Subjective HPI Nontoxic-appearing male presents urgent care chief plaint possible sinus infection. Duration of symptoms 2 weeks. Associated symptoms sinus pressure cough/transient sore throat. States history of sinus infections this feels similar. Has been using OTC medications as this helps some. Sick contacts similar signs symptoms. No significant pain currently. Denies any fever body aches chills productive cough chest pain shortness of breath pleuritic pain hemoptysis nausea vomiting abdominal pain change in bowel or bladder habits. Past medical history prescription medication use and allergies reviewed. .Patient presents with: Sore Throat: Congestion, sinus, cough x 2 week History reviewed. No pertinent past medical history. PAST SURGICAL HISTORY Procedure Laterality Date DIAGNOSIS/HISTORY left wrist reconstruction TONSILLECTOMY AND ADENOIDECTOMY AGE 14/> TYMPANOSTOMY LOCAL/TOPICAL ANESTHESIA ALLERGIES Dogs MEDICATIONS No prescriptions on file. History reviewed. No pertinent family history. Social History Tobacco Use Smoking status: Never Smokeless tobacco: Never Substance Use Topics Alcohol use: Yes Comment: socially BP 110/90 Pulse 91 Temp 36.3 ?C (97.4 ?F) Resp 21 Wt 120.3 kg (265 lb 3.2 oz) SpO2 98% Review of Systems Constitutional: Positive for malaise/fatigue. Negative for chills and fever. HENT: Positive for congestion and sinus pain. Negative for ear discharge, ear pain and sore throat. Eyes: Negative for blurred vision, pain, discharge and redness. Respiratory: Positive for cough. Negative for hemoptysis, sputum production, shortness of breath, wheezing and stridor. Cardiovascular: Negative for chest pain. Gastrointestinal: Negative for abdominal pain, diarrhea, nausea and vomiting. Musculoskeletal: Positive for myalgias. Skin: Negative for itching and rash. Neurological: Negative for dizziness and headaches. Objective Physical Exam Constitutional: General: He is not in acute distress. Appearance: He is not diaphoretic. HENT: Head: Normocephalic. Jaw: No trismus. Right Ear: Tympanic membrane, ear canal and external ear normal. Left Ear: Tympanic membrane, ear canal and external ear normal. Nose: Congestion present. Right Sinus: Maxillary sinus tenderness present. Left Sinus: Maxillary sinus tenderness present. Mouth/Throat: Lips: [place]. Mouth: Mucous membranes are moist. Pharynx: Oropharynx is clear. Uvula midline. No pharyngeal swelling, oropharyngeal exudate, posterior oropharyngeal erythema or uvula swelling. Eyes: Conjunctiva/sclera: Conjunctivae normal. Pupils: Pupils are equal, round, and reactive to light. Cardiovascular: Rate and Rhythm: Normal rate and regular rhythm. Heart sounds: Normal heart sounds. Pulmonary: Effort: Pulmonary effort is normal. No tachypnea, accessory muscle usage or respiratory distress. Breath sounds: No stridor. Wheezing present. No rhonchi or rales. Abdominal: Palpations: Abdomen is soft. Tenderness: There is no abdominal tenderness. There is no guarding or rebound. Musculoskeletal: Cervical back: Normal range of motion and neck supple. No rigidity or tenderness. Lymphadenopathy: Cervical: No cervical adenopathy. Skin: General: Skin is warm and dry. Neurological: Mental Status: He is alert and oriented to person, place, and time. ASSESSMENT/PLAN: 1. Sinobronchitis - ICD9: 473.9, 490, ICD10: J32.9, J40 Diagnosis sinobronchitis. Placed on Augmentin and Tessalon Perles. Red flags prompt reevaluation discussed. Supportive therapies discussed. Follow-up with PCP 3 to 5 days symptoms are not improving. Be seen urgent care or ED for any new worsening symptoms lasting longer anticipated. Patient verbalized understanding agrees plan of care. Tae Savage APRN.KIERSTEN [facility] History of Present illness Narrative 10-01-2022 Tae Savage APRN.KIERSTEN - 10/01/2022 8:06 AM EDT Note Date & Type Note Facility 10-01-2022 History of Presen t illness Narrative Subjective HPI Nontoxic-appearing male presents urgent care chief plaint possible sinus infection. Duration of symptoms 2 weeks. Associated symptoms sinus pressure cough/transient sore throat. States history of sinus infections this feels similar. Has been using OTC medications as this helps some. Sick contacts similar signs symptoms. No significant pain currently. Denies any fever body aches chills productive cough chest pain shortness of breath pleuritic pain hemoptysis nausea vomiting abdominal pain change in bowel or bladder habits. Past medical history prescription medication use and allergies reviewed. .Patient presents with: Sore Throat: Congestion, sinus, cough x 2 week History reviewed. No pertinent past medical history. PAST SURGICAL HISTORY Procedure Laterality Date DIAGNOSIS/HISTORY left wrist reconstruction TONSILLECTOMY & ADENOIDECTOMY AGE 14/> TYMPANOSTOMY LOCAL/TOPICAL ANESTHESIA ALLERGIES Dogs MEDICATIONS No prescriptions on file. History reviewed. No pertinent family history. Social History Tobacco Use Smoking status: Never Smokeless tobacco: Never Substance Use Topics Alcohol use: Yes Comment: socially BP 110/90 Pulse 91 Temp 36.3 C (97.4 F) Resp 21 Wt 120.3 kg (265 lb 3.2 oz) SpO2 98% Review of Systems Constitutional: Positive for malaise/fatigue. Negative for chills and fever. HENT: Positive for congestion and sinus pain. Negative for ear discharge, ear pain and sore throat. Eyes: Negative for blurred vision, pain, discharge and redness. Respiratory: Positive for cough. Negative for hemoptysis, sputum production, shortness of breath, wheezing and stridor. Cardiovascular: Negative for chest pain. Gastrointestinal: Negative for abdominal pain, diarrhea, nausea and vomiting. Musculoskeletal: Positive for myalgias. Skin: Negative for itching and rash. Neurological: Negative for dizziness and headaches. Objective Physical Exam Constitutional: General: He is not in acute distress. Appearance: He is not diaphoretic. HENT: Head: Normocephalic. Jaw: No trismus. Right Ear: Tympanic membrane, ear canal and external ear normal. Left Ear: Tympanic membrane, ear canal and external ear normal. Nose: Congestion present. Right Sinus: Maxillary sinus tenderness present. Left Sinus: Maxillary sinus tenderness present. Mouth/Throat: Lips: [place]. Mouth: Mucous membranes are moist. Pharynx: Oropharynx is clear. Uvula midline. No pharyngeal swelling, oropharyngeal exudate, posterior oropharyngeal erythema or uvula swelling. Eyes: Conjunctiva/sclera: Conjunctivae normal. Pupils: Pupils are equal, round, and reactive to light. Cardiovascular: Rate and Rhythm: Normal rate and regular rhythm. Heart sounds: Normal heart sounds. Pulmonary: Effort: Pulmonary effort is normal. No tachypnea, accessory muscle usage or respiratory distress. Breath sounds: No stridor. Wheezing present. No rhonchi or rales. Abdominal: Palpations: Abdomen is soft. Tenderness: There is no abdominal tenderness. There is no guarding or rebound. Musculoskeletal: Cervical back: Normal range of motion and neck supple. No rigidity or tenderness. Lymphadenopathy: Cervical: No cervical adenopathy. Skin: General: Skin is warm and dry. Neurological: Mental Status: He is alert and oriented to person, place, and time. ASSESSMENT/PLAN: 1. Sinobronchitis - ICD9: 473.9, 490, ICD10: J32.9, J40 Diagnosis sinobronchitis. Placed on Augmentin and Tessalon Perles. Red flags prompt reevaluation discussed. Supportive therapies discussed. Follow-up with PCP 3 to 5 days symptoms are not improving. Be seen urgent care or ED for any new worsening symptoms lasting longer anticipated. Patient verbalized understanding agrees plan of care. Tae Savage APRN.KIERSTEN documented in this encounter [facility] Evaluation note Note Date & Type Note Facility documented in this encounter [facility] Summary Purpose Family History No Family History Records Found Advance Directives No Advanced Directives Records Found Additional Source Comments Source Comments (unrecognize d section and content) In the event this informatio n is protected by the Federal Confidentiality of Alcohol and Drug Abuse Patient Records regulations: The Federal rules restrict any use of the information to criminally investigate or prosecute any alcohol or drug abuse patient.[facility] Reason for Visit (unrecogniz ed section and content) Care Teams (unrecognized sec tion and content) (unrecognized sect ion and content) No Status Records Found INFORMATION SOURCE (unrecogn ized section and content) FOR RECORDS PERTAINING TO PATIENTS WHO ARE OR HAVE BEEN ENROLLED IN A CHEMICAL DEPENDENCY/SUBSTANCEABUSE PROGRAM, SOME INFORMATION MAY BE OMITTED. This clinical summary was aggregated from multiple sources. Caution should be exercised in using it in the provision of clinical care. This summary normalizes information from multiple sources, and as a consequence, information in this document may materially change the coding, format and clinical context of patient data. In addition, data may be omitted in some cases. CLINICAL DECISIONS SHOULD BE BASED ON THE PRIMARY CLINICAL RECORDS. [facility]. provides no warranty or guarantee of the accuracy or completeness of information in this document.
== END 2023-08-08 16:25 | disposition home or self-care (01) ==
PROVIDERS: Emergency Provider Emergency Medicine; PCP Family Medicine; Visit Provider Emergency Medicine
DX: R07.9 Chest pain, unspecified (principal); R03.0 Elevated blood-pressure reading, without diagnosis of hypertension; F12.90 Cannabis use, unspecified, uncomplicated
CPT/HCPCS: 71045; 80048; 84484; 85025; 93005; 99284; A4216

== ENCOUNTER → 2024-04-17 | Outpatient (CLI) | payer MEDICAID, SELFPAY ==
[2024-04-17 15:38] LABS: Absolute Neutrophil Count 6.2 X10^3/uL (2.0-7.7); Basophil# 0.06 X10^3/uL; Basophil% 0.6 % (0-1); Eosinophil# 0.27 X10^3/uL; Eosinophils% 2.9 % (0-5); Hematocrit 44.9 % (40-54); Hemoglobin 14.6 g/dL (13.0-16.5); Lymphocyte % 23.3 % (19-41); Mean Corp Hgb Conc 32.5 g/dL (32-36); Mean Corpuscular Hgb 26.9 pg (27.0-32.0); Mean Corpuscular Volume 82.7 fL (80-94); Mean Platelet Vol. 11.8 fl (6.2-12.0); Monocyte% 7.4 % (0-10); NRBC Flagged by Analyzer 0 % (0-5); Neutrophil # 6.19 X10^3/uL (2.7-7.7); Neutrophil % 65.4 % (47-70); Platelet Count 278 K/mm3 (150-450); RBC Distribution Width CV 12.9 % (11.6-14.6); RBC Distribution Width SD 38.4 fl (35.1-43.9); Red Blood Count 5.43 M/mm3 (4.6-6.2); White Blood Count 9.5 K/mm3 (4.4-11.0)
[2024-04-17 15:44] LABS: Prothrombin Time (Protime)PT. 12.9 SECONDS (11.7-14.9)
[2024-04-17 16:30] LABS: AST(SGOT) 16 U/L (15-37); Alanine Aminotransfer ALT/SGPT 33 U/L (16-61); Albumin, Serum 4.2 g/dL (3.2-5.0); Alkaline Phosphatase 73 U/L (45-117); Bilirubin, Direct 0.13 mg/dL (0.00-0.30); Globulin 3.4 g/dL (2.2-4.2); Protein, Total 7.6 g/dL (6.4-8.2)
[2024-04-21 08:13] LABS: Deamidated Gliadin IgA 7 units (0-19); Deamidated Gliadin IgG 3 units (0-19); Endomysial Antibody IgA Negative (Negative); Immunoglobulin A 194 mg/dL (90-386); t-Transglutaminase IgA <2 U/mL (0-3)
== END | disposition home or self-care (01) ==
LOC: MFPLAB 12:19
PROVIDERS: PCP Family Medicine; Referring Provider Family Medicine; Visit Provider Family Medicine
DX: R17 Unspecified jaundice (principal)
CPT/HCPCS: 36415; 80076; 82784; 83516; 85025; 85610; 86255